=== PATIENT | female | born 1995 | race Caucasian/White ===

== ENCOUNTER 2016-11-03 09:06 | Emergency (ER) | payer BC ==
[~2016-11-03] VITALS: Ht 160 cm; Wt 62.1 kg
[2016-11-03] MEDS ORDERED: AMOXICILLIN500 MG PO (09:38)
[2016-11-03 10:28] VITALS: BP 108/71
== END 2016-11-03 10:29 | disposition home or self-care (01) ==
LOC: EME 09:06
DX: S00.512A Abrasion of oral cavity, initial encounter (principal); X58.XXXA Exposure to other specified factors, initial encounter
CPT/HCPCS: 99281; 99284